=== PATIENT | male | born 2000 | race Caucasian/White ===

== ENCOUNTER 2021-12-12 23:45 | Emergency (ER) | payer MEDICAID ==
[~2021-12-12] VITALS: Ht 175.3 cm; Wt 86.1 kg
[2021-12-13 02:13] LABS: CLARITY URINE CLEAR (CLEAR); COLOR URINE YELLOW (YELLOW); KETONES URINE TRACE (NEGATIVE); LEUKOCYTE ESTERASE URINE NEGATIVE (NEGATIVE); NITRITE URINE NEGATIVE (NEGATIVE); OCCULT BLOOD URINE NEGATIVE (NEGATIVE); PH URINE 6.5 (4.5-8.0); PROTEIN URINE TRACE (NEGATIVE); SPECIFIC GRAVITY URINE 1.031 (1.005-1.030)
[2021-12-13 02:36] LABS: BASOPHILS % 0.4 % (0.0-2.0); CHLORIDE 104 mEq/L (98-107); EOSINOPHILS % 2.3 % (0.0-5.0); HEMOGLOBIN. 15.7 g/dL (14.0-18.0); LYMPHOCYTES % 17.5 % (20.0-50.0); MEAN CORPUSCULAR HEMOGLOBIN 28.6 pg (28.0-32.0); MEAN CORPUSCULAR VOLUME 87.4 fL (80.0-94.0); MEAN PLATELET VOLUME 8.8 fl (7.4-10.4); MONOCYTES % 10.3 % (2.0-8.0); NEUTROPHILS % 69.5 % (40.0-76.0); PLATELET 312 x1000/uL (130-400); RED BLOOD CELL COUNT 5.49 mill/uL (4.7-6.1); RED CELL DISTRIBUTION WIDTH 13.6 % (11.6-14.6)
[2021-12-13] MEDS ORDERED: KETOROLAC 60MG/2ML VIAL IM ONE (03:15)
[2021-12-13 03:24] VITALS: BP 147/97
[2021-12-13] MEDS ORDERED: NAPR-1176 MT (03:36)
== END 2021-12-13 04:17 | disposition home or self-care (01) ==
LOC: ER 23:54
DX: R07.89 Other chest pain (principal)
CPT/HCPCS: 36415; 71045; 80053; 81003; 83880; 84484; 85025; 93005; 96372; 99285; J1885

== ENCOUNTER 2022-06-02 15:51 | Emergency (ER) | payer SELFPAY ==
[~2022-06-02] VITALS: Ht 167.6 cm; Wt 70.0 kg
[~2022-06-02 15:51] MED LIST: NAPR-1176 MT
[2022-06-02 16:04] VITALS: BP 139/107
[2022-06-02] MEDS ORDERED: IBUPROFEN 400MG TABLET PO ONE (18:30)
[2022-06-02] MEDS ORDERED: NAPR500T7 MT (19:40)
== END 2022-06-02 20:02 | disposition home or self-care (01) ==
LOC: ER 15:51
DX: M25.511 Pain in right shoulder (principal)
CPT/HCPCS: 73030; 99283; A4565